=== PATIENT | male | born 1985 | race Caucasian/White ===

== ENCOUNTER 2019-07-22 17:24 | Emergency (ER) | payer OTHER ==
[~2019-07-22] VITALS: Ht 185.4 cm; Wt 79.4 kg
[2019-07-22 17:35] VITALS: BP 146/99
--- NOTE | 2019-07-22 18:19 | Emergency Room Report ---
History of Present Illness General Chief Complaint: Laceration Source: Patient Present Illness HPI 33-year-old male with no significant past medical history here complaining of a laceration to chin that happened an hour prior to arrival. Patient reports that he slipped on a wet floor and landed on his chin. Denies any head injury or loss of consciousness. Has full range of motion of the jaw. No tooth trauma noted. Patient is up-to-date with tetanus shot. Patient is not taking any blood thinners. Superficial laceration of the chin noted. Denies all other injuries. Has not taken medication for symptom relief. Allergies: Coded Allergies: No Known Allergies (Unverified , 07/22/19) Patient History Past Medical History: see triage record Past Surgical History: none Pertinent Family History: none Immunizations: UTD Reviewed Nursing Documentation: PMH: Agreed; PSxH: Agreed Nursing Documentation-PMH Past Medical History: No Stated History Review of Systems All Other Systems: negative except mentioned in HPI Physical Exam Vital Signs Date Time Temp Pulse Resp B/P (MAP) Pulse Ox O2 Delivery O2 Flow Rate FiO2 07/22/19 17:29 97.7 77 18 146/99 (115) 96 Room Air Sp02 EP Interpretation: reviewed, normal General Appearance: no apparent distress, alert, GCS 15, non-toxic Head: normocephalic, atraumatic Eyes: bilateral eye normal inspection, bilateral eye PERRL ENT: hearing grossly normal, normal pharynx, no angioedema, normal voice Neck: full range of motion, supple, no carotid bruits, supple/symm/no masses Respiratory: chest non-tender, lungs clear, normal breath sounds, no rhonchi, no respiratory distress, speaking full sentences Cardiovascular #1: regular rate, rhythm, no edema, no murmur Cardiovascular #2: 2+ carotid (R), 2+ carotid (L) Gastrointestinal: normal bowel sounds, non tender, soft, non-distended, no guarding, no rebound Rectal: deferred Genitourinary: no CVA tenderness Musculoskeletal: decreased range of motion Neurologic: alert, motor strength/tone normal, oriented x3, sensory intact, responsive, speech normal Psychiatric: judgement/insight normal, memory normal, mood/affect normal, no suicidal/homicidal ideation Skin: laceration - superficial lac chin, no bony or tendon involvement Lymphatic: no adenopathy Procedures Laceration/Wound Repair Laceration/Wound Repair : Consent: Verbal Wound Location: face - chin Wound's Depth, Shape: superficial Wound Length (cm): 1 Wound Explored: contaminated Irrigated w/ Saline (ccs): 10 Betadine Prep?: No Anesthesia: Lidocaine w/ Epi Wound Repaired With: sutures Suture Size/Type: 5:0, proline Number of Sutures: 8 Layer Closure?: Yes Sterile Dressing Applied?: Yes Splint Applied?: No Sling Applied?: No Patient Tolerated: Well Complications: None Medical Decision Making PA Attestation All diagnoses and treatment plans were reviewed and discussed with my supervising physician Dr. Dobbs Diagnostic Impression: Primary Impression: Laceration of chin ER Course 33-year-old male with no significant past medical history here complaining of a laceration to chin that happened an hour prior to arrival. Patient reports that he slipped on a wet floor and landed on his chin. Denies any head injury or loss of consciousness. Has full range of motion of the jaw. No tooth trauma noted. Patient is up-to-date with tetanus shot. Patient is not taking any blood thinners. Superficial laceration of the chin noted. Denies all other injuries. Has not taken medication for symptom relief. Ddx considered but are not limited to : Superficial laceration, deep laceration , tendon involvement with laceration, laceration with foreign body Vital signs: are WNL, pt. is afebrile H&PE are most consistent with: Superficial laceration of chin ORDERS: Mupirocin ointment, Motrin ED INTERVENTIONS: Laceration repair, DISCHARGE: At this time pt. is stable for d/c to home. Will provide printed patient care instructions, and any necessary prescriptions. Care plan and follow up instructions have been discussed with the patient prior to discharge. Sutures to be removed in 7 to 10 days, take medication as directed, worsening symptoms return to emergency room. no Xray needed as no glass/fb involved Last Vital Signs Date Time Temp Pulse Resp B/P (MAP) Pulse Ox O2 Delivery O2 Flow Rate FiO2 07/22/19 17:35 97.7 88 18 146/99 96 Room Air Disposition: HOME, SELF-CARE Condition: Stable Scripts Ibuprofen* (MOTRIN*) 600 Mg Tablet 600 MG ORAL THREE TIMES A DAY, #30 TAB 0 Refills Prov: Frantz Lyles 07/22/19 Mupirocin* (MUPIROCIN*) 22 Gm Oint...g. 1 APPLIC TOPIC THREE TIMES A DAY, #15 GM Prov: Frantz Lyles 07/22/19 Referrals: Yasmany STANLEY,REFERRING (PCP) Patient Instructions: Laceration Care, Adult Additional Instructions: Sutures to be removed in 7 to 10 days, take medication as directed, avoid making the area wet, if worsening symptoms return to the emergency room Frantz Lyles Jul 22, 2019 18:19
[2019-07-22] MEDS ORDERED: MUPIROCIN22 GM TOPIC (18:20)
[2019-07-22] MEDS ORDERED: IBUPROFEN600 MG ORAL (18:20)
[2019-07-22 18:24] VITALS: BP 135/89
== END 2019-07-22 18:26 | disposition home or self-care (01) ==
LOC: EMR 17:50
DX: S01.81XA Laceration without foreign body of other part of head, initial encounter (principal); W01.0XXA Fall on same level from slipping, tripping and stumbling without subsequent striking against object, initial encounter; Y92.9 Unspecified place or not applicable
CPT/HCPCS: 12011; Z7502; 99283